=== PATIENT | male | born 1945 | race Caucasian/White ===

== ENCOUNTER 2025-05-23 07:16 | Day surgery (SDC) | payer MEDICARE ==
[2025-05-23] MEDS ORDERED: EPINEPHrine 0.3 MG in Ophthalmic Irrigation Solution 500 ML IRR SCH (07:45)
[2025-05-23] MEDS ORDERED: Cyclopentolate 1% Opth Drop 2 ML BOT ONE (08:07)
[2025-05-23] MEDS ORDERED: PROPOFOL 20 ML ONE (08:34)
[2025-05-23] MEDS ORDERED: Lidocaine 1% PF 5 ML VIAL ONE ×2 (08:34→09:30)
[2025-05-23] MEDS ORDERED: CEFAZOLIN 1 GM VIAL ONE (09:30)
[2025-05-23] MEDS ORDERED: Lidocaine 4% PF 5 ML AMP ONE (09:30)
[2025-05-23] MEDS ORDERED: Maxitrol 0.1% Opth Oint 3.5 GM TUBE ONE (09:30)
== END 2025-05-23 10:51 | disposition home or self-care (01) ==
LOC: SDC 07:16
PROVIDERS: ATTEND Ophthalmology Retina Specialist
PROC: 08B53ZZ Excision of Left Vitreous, Percutaneous Approach (ICD-10-PCS; principal; 2025-05-23)
DX: H33.022 Retinal detachment with multiple breaks, left eye (principal)
CPT/HCPCS: 67025; 67108; J0166; J0690; J2003; J2250; J2704; J3010; J3301; J3490